=== PATIENT | male | born 1950 | race Caucasian/White ===

== ENCOUNTER 2022-12-18 13:32 | Outpatient (CLI) | payer MEDICARE, SELFPAY ==
[2022-12-18 13:49] LABS: Hematocrit 42.6 % (37.0-46.0); Hemoglobin 15.1 g/dL (12.4-15.3); Mean Corpuscular HGB Conc 35.4 g/dL (32.0-36.0); Mean Corpuscular Hemoglobin 31.2 pg (27.0-31.0); Platelet Count Result 201 K/mm3 (150-420); Red Blood Count 4.84 M/mm3 (4.70-6.10); Red Cell Distribution Width 11.8 % (11.6-14.4); White Blood Count 5.7 K/mm3 (4.8-10.8)
[2022-12-18 14:10] LABS: Alanine Aminotransferase 17 U/L (16-63); Albumin Level 3.9 g/dL (3.4-5.0); Alkaline Phosphatase 67 U/L (46-116); Anion Gap 8 mmol/L (8-16); Aspartate Amino Transferase 13 U/L (15-37); Bilirubin,Total 0.7 mg/dL (0.00-1.00); Blood Urea Nitrogen 10 mg/dL (7-18); Carbon Dioxide 26 mmol/L (21-32); Chloride 91 mmol/L (98-108); Cholesterol 156 mg/dL (0-200); Estimated Glomerular Filt Rate > 60; Glucose 102 mg/dL (70-99); HDL Direct 37 mg/dL (40-60); LDL Cholesterol Calculated 102 mg/dL (<130); Osmolality Calculated 259 mOsm/kg (285-295); Potassium 3.9 mmol/L (3.5-5.1); Sodium 125 mmol/L (136-145); Total Protein 7.2 g/dL (6.4-8.2); Triglycerides 87 mg/dL (0-150)
[2022-12-18 14:21] LABS: Band Neutrophils Percent 1 % (0-6); Basophils Percent Manual 0 % (0-1); Eosinophils Absolute Manual 0.05 K/mm3 (0.02-0.5); Eosinophils Percent Manual 1 % (1-6); Lymphocytes Absolute Manual 1.99 K/mm3 (1.1-4.5); Lymphocytes Percent Manual 35 % (18-44); Monocytes Absolute Manual 0.39 K/mm3 (0.1-0.90); Monocytes Percent Manual 7 % (3-9); Neutrophils Absolute Manual 3.24 K/mm3 (1.3-6.7); Neutrophils Percent Manual 56 % (46-73); Platelet Estimate Adequate (Adequate); Total Cells Counted 100
== END 2022-12-18 13:33 | disposition home or self-care (01) ==
LOC: CHSLAB 13:35
PROVIDERS: PCP Nurse Practitioner Family; Visit Provider Nurse Practitioner Family
DX: I10 Essential (primary) hypertension (principal)
CPT/HCPCS: 36415; 80053; 80061; 85025